=== PATIENT | male | born 1960 | race Caucasian/White ===

== ENCOUNTER 2021-09-03 11:56 | Emergency (ER) | payer OTHER, SELFPAY ==
[2021-09-03 12:03] VITALS: BP 156/108; PULSE 91; RESP 20; TEMP 36.7; O2SAT 99
--- NOTE | 2021-09-03 12:15 | RT.EKG_ITS ---
APPROVED REPORT Exam: Resting ECG Reason for Exam: chest pain Patient Location: E HR:73 bpm ECG Measurements Heart Rate 73 AXIS TN 186 P 72 QRSd 88 QRS -1 QT 410 T 63 QTc 451 Conclusion Sinus rhythm...normal P axis, V-rate 60- 99 no STEMI, non-diagnostic EKG
--- NOTE | 2021-09-03 12:15 | DI.CT_ITS ---
Exam(s) CT CHEST PE CTA EXAM: CT CHEST PE CTA CLINICAL HISTORY: hx of hemoptysis. TECHNIQUE: Imaging Protocol: CT angiography of the chest was performed using pulmonary embolus claudia col. Multi planar reconstructions were performed. CONTRAST MATERIAL: Intravenous: Omnipaque 350 Contrast volume: 100 cc COMPARISON: No exams were available for comparison FINDINGS: CHEST: PULMONARY ARTERIES: There are no intraluminal filling defects to suggest acute pulmonary emboli. LUNGS: There is cavitated infiltrate in the right upper lobe, this measuring approximately 4.5 x 4.2 by 4.5 cm. Some volume loss in the right upper lobe is also noted.. There is also a somewhat concer dru infiltrate in the right lower lobe measuring 2 x 2 cm. This is non cavitated. Another area of infiltrate is noted in superior segment the right lower lobe measuring approximately 3 x 1.5 cm. The re are no pleural effusions. In the opposite-left lung there is some mild infiltrate in the upper lobe close to the heart border, non cavitated. Also within inferior lingular segment. There are no pleural effusions MEDIASTINUM: There is no hilar nor mediastinal adenopathy. Visualized thyroid unremarkable. CARDIAC: Heart size is upper normal. There is no pericardial effusion.Caliber of the thoracic aorta is upper normal. There is no significant shift of the interventricular septum. PARTIALLY VISUALIZED UPPERMOST ABDOMEN: No adrenal masses. Nonobstructive calculi are noted in the l eft kidney, partially included in the field of view. Hepatic steatosis noted. No splenomegaly. OSSEOUS: No significant osseous lesions.. IMPRESSION: 1. No evidence of acute pulmonary emboli. No evidence of pulmonary infarction.No pleural effusions. 2. However, there is significant right para-suprahilar infiltrate in the right upper lobe which is ca vitated. Requires close follow-up to rule out neoplasm. Also other areas of infiltrate in the lower lobe noted, these being non cavitated. No prominent lymphadenopathy. No pleural effusions. 3. Mild areas of infiltrate in the opposite-left lung. Also without pleural effusion Other findings as above. RADIATION DOSE DELIVERED: 353.83mGy.cm Total DLP DATA REPOSITORY: All CT scans at this facility are submitted to the National Radiology Data Registry (NRDR) Dose Index Registry (DIR) with the [employer] (A[employer]). RADIATION OPTIMIZATION: All CT scans at this facility use at least one of these dose optimization te chniques: automated exposure control; mA and/or kV adjustment per patient size (includes targeted exa ms where dose is matched to clinical indication); or iterative reconstruction.
[2021-09-03 13:30] VITALS: RESP 18
[2021-09-03 13:35] LABS: Abs Immature Grans 0.03 10^3/uL (0.0-0.06); Absolute Basophil Count 0.05 10^3/uL (0.0-0.2); Absolute Eosinophil Count 0.09 10^3/uL (0.0-0.7); Absolute Monocyte Count 0.76 10^3/uL (0.1-0.8); Absolute Neutrophil Count 3.98 10^3/uL (1.2-6.7); Basophils % 0.8; Eosinophils % 1.4; HCT 47.1 % (40.0-50.0); HGB 15.9 g/dL (13.5-17.5); Immature Grans % 0.5; Lymphocytes % 22.2; MCH 32.9 pg (27.0-33.0); MCHC 33.8 % (32.0-36.0); MCV 97.3 fL (80-95); MPV 9.4 fL (8.0-11.0); Neutrophils % 63.1; Nucleated RBC 0 %; Platelet Count 267 10^3/uL (130-400); RBC 4.84 10^6/uL (4.36-5.78); RDW 13.1 % (11.8-14.1); RDW-SD 47.2 fL; WBC 6.31 10^3/uL (4.4-10.8)
[2021-09-03 13:59] LABS: Calcium 8.6 mg/dL (8.5-10.1)
[2021-09-03 14:00] LABS: Albumin 3.9 g/dL (3.4-5.0); Alkaline Phosphatase 142 U/L (46-116); BUN 10 mg/dL (7-18); Bilirubin, Total 0.5 mg/dL (0.2-1.0); CREATININE 0.8 mg/dL (0.70-1.30); Glucose 113 mg/dL (74-106); Sodium 139 mmol/L (136-145)
[2021-09-03 14:01] LABS: ALT 49 U/L (16-63); AST 36 U/L (15-37); Anion Gap 6.6 mmol/L (3-11); CO2 31.4 mmol/L (21.0-32.0); Chloride 101 mmol/L (98-107); Potassium 4.3 mmol/L (3.5-5.1); Troponin I < 0.05 ng/mL (<0.06)
[2021-09-03 14:03] LABS: NT-proBNP 92 pg/mL (<300)
--- NOTE | 2021-09-03 14:27 | NUR.NOTE ---
1400 Denies any pain or discomforts at [facility] [id number] comfortably.Nursing Note:
--- NOTE | 2021-09-03 15:13 | W.ED.GENAD ---
Discharge Plan Disposition Patient Disposition: HOME Condition: Stable Discharge Details Clinical Impression: Pneumonia, Cavitary lesion of lung Primary Care Provider: [place] Provider: Juan Lee Home Meds and New Rx's Prescriptions: New amoxicillin-pot clavulanate [Augmentin] 875-125 mg tablet 1 tab PO BID Qty: 20 RF: 0 Discharge Instructions Instructions: Pneumonia (ED) Additional Instructions: I strongly recommended to quit smoking. Augmentin as directed. Your CT finding is extremely concerning for a irregular lung infection and/or mass. I consulted with our telemarketing fundraiser and we will initiate antibiotic therapy here we will need to follow her as an outpatient for further evaluation and work-up. Please watch for new or worsening symptoms and return to the ER for any concerns. I have placed you on the care management team to help expedite both outpatient primary care and pulmonary follow-up. Referrals: Char Escobar MD [ [facility] STAFF PHYSICIAN] - Discharge Data Discharge Date/Time-TO BE ENTERED AT DEPARTURE: 09/03/21 18:24 Medical Decision Making <EMILY Malik - Last Filed: 09/04/21 12:09> CT pending given hemoptysis and presenting symptoms Diagnostic labs do not show acute abnormality Patient resting comfortably in room, no withdrawal signs or symptoms, alert, oriented, of decisional capacity Pending CT interpretation at this time Symptoms have not changed for patient reportedly Patient smokes tobacco, uses inhalers on a daily basis, sounds like he has a history of COPD Is not Covid vaccinated, denies any new symptoms in the past 2 years Medical Records Medical records reviewed: Yes I reviewed the patient's medical records. Lab Data Lab results reviewed: Yes I reviewed the patient's lab results. <EMILY Eastman - Last Filed: 09/03/21 18:15> I assumed care of this 61-year-old male from my colleague EMILY Tamez with CTA of the chest pending. Please see her initial HPI and examination. Patient is a smoker, reports lung pain and hemoptysis in the past although no hemoptysis now. Has not seen a primary care provider in at least 7 or 8 years. Patient is speaking in full sentences, O2 sats in the mid to high 90s on room air he is afebrile CTA reveals 1. No evidence of acute pulmonary emboli. No evidence of pulmonary infarction.No pleural effusions. 2. However, there is significant right para-suprahilar infiltrate in the right upper lobe which is cavitated. Requires close follow-up to rule out neoplasm. Also other areas of infiltrate in the lower lobe noted, these being non cavitated. No prominent lymphadenopathy. No pleural effusions. 3. Mild areas of infiltrate in the opposite-left lung. Also without pleural effusion Given the cavitated infiltrate, concern for neoplasm, I have placed a call to our telemarketing fundraiser for consultation. Unfortunately I was told that she was not personal lines insurance advisor this evening so I have pushed the images to [facility] and requested a consult from them. Fortunately, Dr. Escobar, our telemarketing fundraiser was in-house and able to come to the ER to discuss the case. She reviewed the CT imaging, recommend initiating Augmentin therapy and she will be happy to follow the patient as an outpatient as he will require further evaluation for his abnormal CT findings. Patient appears stable, does not require admission at this time. This plan was discussed with patient. I placed him on the care management list to help expedite both primary care follow-up and pulmonology follow-up. Patient has no additional questions or concerns. Standard discharge and return precautions provided. Imaging Data Radiologic Study: Attestation: I personally reviewed and interpreted this imaging study as follows: Imaging: CT Scan Radiologist's impression: Exam(s) CT CHEST PE CTA EXAM: CT CHEST PE CTA CLINICAL HISTORY: hx of hemoptysis. TECHNIQUE: Imaging Protocol: CT angiography of the chest was performed using pulmonary embolus protocol. Multi planar reconstructions were performed. CONTRAST MATERIAL: Intravenous: Omnipaque 350 Contrast volume: 100 cc COMPARISON: No exams were available for comparison FINDINGS: CHEST: PULMONARY ARTERIES: There are no intraluminal filling defects to suggest acute pulmonary emboli. LUNGS: There is cavitated infiltrate in the right upper lobe, this measuring approximately 4.5 x 4.2 by 4.5 cm. Some volume loss in the right upper lobe is also noted.. There is also a somewhat concerning infiltrate in the right lower lobe measuring 2 x 2 cm. This is non cavitated. Another area of infiltrate is noted in superior segment the right lower lobe measuring approximately 3 x 1.5 cm. There are no pleural effusions. In the opposite-left lung there is some mild infiltrate in the upper lobe close to the heart border, non cavitated. Also within inferior lingular segment. There are no pleural effusions MEDIASTINUM: There is no hilar nor mediastinal adenopathy. Visualized thyroid unremarkable. CARDIAC: Heart size is upper normal. There is no pericardial effusion.Caliber of the thoracic aorta is upper normal. There is no significant shift of the interventricular septum. PARTIALLY VISUALIZED UPPERMOST ABDOMEN: No adrenal masses. Nonobstructive calculi are noted in the left kidney, partially included in the field of view. Hepatic steatosis noted. No splenomegaly. OSSEOUS: No significant osseous lesions.. IMPRESSION: 1. No evidence of acute pulmonary emboli. No evidence of pulmonary infarction.No pleural effusions. 2. However, there is significant right para-suprahilar infiltrate in the right upper lobe which is cavitated. Requires close follow-up to rule out neoplasm. Also other areas of infiltrate in the lower lobe noted, these being non cavitated. No prominent lymphadenopathy. No pleural effusions. 3. Mild areas of infiltrate in the opposite-left lung. Also without pleural effusion HPI <EMILY Malik - Last Filed: 09/04/21 12:09> General Mode of arrival: ambulatory. Date/Time Provider Initiated Documentation: 09/03/21 12:20. Limitations to Documentation: no limitations. Information obtained by: patient. HPI Narrative: 61-year-old gentleman with history of COPD and hole in lung , presents for worsening lung pain over the course of the past 2 years. Presents today to check out a CT scan. He [facility] . He has not been evaluated for the past 7 years.. He denies history of withdrawal symptoms. He denies any current symptoms. He has had intermittent hemoptysis per patient. He is not had an episode for the past year. He denies any fever or chills. He denies any calf pain or swelling. He denies history of coagulopathy. He is not anticoagulated. He does drink approximately 4 beers a day, no history of withdrawal symptoms. Related Data Home Medications Medication Instructions Recorded Confirmed amoxicillin-pot clavulanate 1 tab PO BID #20 tab 09/03/21 [Augmentin] Previous Rx's Medication Instructions Recorded amoxicillin-pot clavulanate 1 tab PO BID #20 tab 09/03/21 [Augmentin] Allergies Allergy/AdvReac Type Severity Reaction Status Date / Time No Known Allergies Allergy Unverified 09/03/21 13:37 General Stated Complaint: [employer] ANGELA: 2 Review of Systems <EMILY Malik - Last Filed: 09/04/21 12:09> All systems reviewed & are unremarkable except as noted in HPI and below PFSH <EMILY Malik - Last Filed: 09/04/21 12:09> Social History Smoking/Tobacco Use Status: Current, status unknown Tobacco Type: cigarettes Smoking risk assessment performed?: Yes Alcohol Intake: current Alcohol Intake frequency: 3 or more drinks per day Alcohol type: beer Substance use type: does not use Do you feel safe at home: Yes Exam <EMILY Malik Last Filed: 09/04/21 12:09> Const General: cooperative, comfortable and no acute distress Eyes Pupils: PERRL Resp Effort & Inspection: normal respiratory effort Auscultation: wheezes Other: No respiratory distress Cardio Rate: regular rate Rhythm: regular rhythm GI Inspection: normal to inspection Auscultation: normal bowel sounds Skin General skin exam: no rashes or lesions noted Neuro General: patient alert and patient oriented x3 Extrem Other: No calf swelling or tenderness Course <EMILY Malik - Last Filed: 09/04/21 12:09> Vital Signs Vital signs: Vital Signs Temperature 36.7 C 09/03/21 12:03 Pulse 91 H 09/03/21 12:03 Respiratory Rate 20 09/03/21 12:03 Blood Pressure 156/108 H 09/03/21 12:03 Pulse Oximetry 99 09/03/21 12:03 Temperature 36.7 C 09/03/21 12:03 Temperature Source Tympanic 09/03/21 14:13 Pulse 91 H 09/03/21 12:03 Respiratory Rate 18 09/03/21 13:30 Respiratory Effort Non-Labored 09/03/21 14:04 Respiratory Depth Normal 09/03/21 13:30 Respiratory Pattern Normal 09/03/21 13:30 Blood Pressure 156/108 H 09/03/21 12:03 Blood Pressure Position Sitting 09/03/21 12:03 Pulse Oximetry 99 09/03/21 12:03 Oxygen Delivery Method Room Air 09/03/21 14:13 Oxygen Flow Rate 0 09/03/21 14:13 Comment 09/03/21 12:03 Lab/Test Results Lab/Test Results: Laboratory Tests Range/Units 09/03/21 09/03/21 09/03/21 13:25 13:25 13:25 WBC (4.4-10.8) 10^3/uL 6.31 RBC (4.36-5.78) 10^6/uL 4.84 Hgb (13.5-17.5) g/dL 15.9 Hct (40.0-50.0) % 47.1 MCV (80-95) fL 97.3 H MCH (27.0-33.0) pg 32.9 MCHC (32.0-36.0) % 33.8 RDW (11.8-14.1) % 13.1 Plt Count (130-400) 10^3/uL 267 MPV (8.0-11.0) fL 9.4 Immature Gran % 0.5 Neutrophils % 63.1 Lymphocytes % 22.2 Monocytes % 12.0 Eosinophils % 1.4 Basophils % 0.8 Nucleated RBC % % 0 Absolute Neutrophils (1.2-6.7) 10^3/uL 3.98 Absolute Lymphocytes (1.2-3.4) 10^3/uL 1.40 Absolute Monocytes (0.1-0.8) 10^3/uL 0.76 Absolute Eosinophils (0.0-0.7) 10^3/uL 0.09 Absolute Basophils (0.0-0.2) 10^3/uL 0.05 Sodium (136-145) mmol/L 139 Potassium (3.5-5.1) mmol/L 4.3 Chloride (98-107) mmol/L 101 Carbon Dioxide (21.0-32.0) mmol/L 31.4 Anion Gap (3-11) mmol/L 6.6 BUN (7-18) mg/dL 10 Creatinine (0.70-1.30) mg/dL 0.8 Estimated GFR/1.73 m2 (mL/min/1.73m2) >= 60.00 Glucose (74-106) mg/dL 113 H Calcium (8.5-10.1) mg/dL 8.6 Total Bilirubin (0.2-1.0) mg/dL 0.5 AST (15-37) U/L 36 ALT (16-63) U/L 49 Alkaline Phosphatase (46-116) U/L 142 H Troponin I (<0.06) ng/mL < 0.05 NT-Pro-B Natriuret Pep (<300) pg/mL 92 Total Protein (6.4-8.2) g/dL 8.0 Albumin (3.4-5.0) g/dL 3.9 Patient ABO/Rh Cancelled Antibody Screen Range/Units 09/03/21 13:50 WBC (4.4-10.8) 10^3/uL RBC (4.36-5.78) 10^6/uL Hgb (13.5-17.5) g/dL Hct (40.0-50.0) % MCV (80-95) fL MCH (27.0-33.0) pg MCHC (32.0-36.0) % RDW (11.8-14.1) % Plt Count (130-400) 10^3/uL MPV (8.0-11.0) fL Immature Gran % Neutrophils % Lymphocytes % Monocytes % Eosinophils % Basophils % Nucleated RBC % % Absolute Neutrophils (1.2-6.7) 10^3/uL Absolute Lymphocytes (1.2-3.4) 10^3/uL Absolute Monocytes (0.1-0.8) 10^3/uL Absolute Eosinophils (0.0-0.7) 10^3/uL Absolute Basophils (0.0-0.2) 10^3/uL Sodium (136-145) mmol/L Potassium (3.5-5.1) mmol/L Chloride (98-107) mmol/L Carbon Dioxide (21.0-32.0) mmol/L Anion Gap (3-11) mmol/L BUN (7-18) mg/dL Creatinine (0.70-1.30) mg/dL Estimated GFR/1.73 m2 (mL/min/1.73m2) Glucose (74-106) mg/dL Calcium (8.5-10.1) mg/dL Total Bilirubin (0.2-1.0) mg/dL AST (15-37) U/L ALT (16-63) U/L Alkaline Phosphatase (46-116) U/L Troponin I (<0.06) ng/mL NT-Pro-B Natriuret Pep (<300) pg/mL Total Protein (6.4-8.2) g/dL Albumin (3.4-5.0) g/dL Patient ABO/Rh O Positive Antibody Screen NEGATIVE Sign Out <EMILY Malik - Last Filed: 09/04/21 12:09> Sign Out Data: Sign Out Comment: pending ct interpretation Last updated by Marisela Tamez PA at 09/03/21 16:06 PAWSS <EMILY Malik - Last Filed: 09/04/21 12:09> Have you Been Recently Intoxicated or Drunk Within the Last 30 days?: Yes Have you Ever Experienced Previous Episodes of Alcohol Withdrawal?: No Have you ever Experienced Withdrawal Seizures?: No Have you ever Experienced Delirium Tremens(DT)s?: No Have you ever undergone Alcohol Rehabilitation Treatment (i.e, inpt ot outpatient treatment programs)?: Yes Have you ever Experienced Blackouts?: No Have you ever Combined Alcohol with other Downers within the last 90 days?: No Have you ever Combined Alcohol with any other Substance of Abuse during the last 90 days?: No Positive Blood Alcohol level on Presentation? [PCS.BAL]: No Evidence of Increased Autonomic Activity (i.e. HR>120, tremor, sweating, agitation, nausea)?: No Result: 2
[2021-09-03] MEDS: Normal Saline - Diluent 50 ML VIAL IV (15:30)
[2021-09-03] MEDS: Omnipaque 350 MG/ML 100 ML BTL IJ (15:31)
[2021-09-03 16:16] LABS: Troponin I < 0.05 ng/mL (<0.06)
[2021-09-03] MEDS: Amoxicillin 875/Clav. 125 TAB PO (18:10)
[2021-09-03 18:39] VITALS: BP 164/98; PULSE 95; RESP 18; TEMP 36.6; O2SAT 96
--- NOTE | 2021-09-04 01:22 | NUR.NOTE ---
Referral to Care Management to get patient set up with pcp and Pulmonary Rehab. Dr. Escobar aware Care Management will be making referral.Nursing Note:
[2021-09-04 16:14] LABS: COVID-19 RT-PCR UVMMC Result Negative (Negative)
== END 2021-09-03 18:24 | disposition home or self-care (01) ==
PROVIDERS: Physician Assistant; Emergency Provider Physician Assistant
DX: J18.9 Pneumonia, unspecified organism (principal); R91.8 Other nonspecific abnormal finding of lung field; J44.9 Chronic obstructive pulmonary disease, unspecified; F17.210 Nicotine dependence, cigarettes, uncomplicated; R07.9 Chest pain, unspecified; R06.02 Shortness of breath
CPT/HCPCS: 36415; 71275; 80053; 86850; 86900; 86901; 93005; 99285; U0003; 83880; 84484; 85025; 93010; 99284; J3490

== ENCOUNTER 2021-09-24 15:32 | Outpatient (REF) | payer MEDICARE, SELFPAY ==
[2021-09-24 22:35] LABS: Rheumatoid Factor <8.6 IU/mL (<12.0)
[2021-09-25 09:54] LABS: Cyclic Citrullinated Peptide <2.5 U/mL (<5.0)
[2021-09-25 12:56] LABS: dsDNA Ab, IgG <12.3 IU/mL (<30.0)
[2021-09-25 13:55] LABS: ANA Interpretation Positive (Negative); ANA Titer Pattern 1:320 Speckled
[2021-09-25 14:27] LABS: Myeloperoxidase Ab IgG <0.2 U; Proteinase 3 Ab (PR3) <0.2 U
[2021-09-25 17:06] LABS: Fungitell Qualitative Negative (Negative); Fungitell Quantitative Value <31 pg/mL (<60 pg/mL)
[2021-09-29 20:55] LABS: Blastomyces Ag Result Not Detected; Blastomyces Ag Value Not Detected
== END 2021-09-24 15:33 | disposition home or self-care (01) ==
LOC: LBN 15:32
PROVIDERS: Visit Provider Student in an Organized Health Care Education/Training Program
DX: J98.4 Other disorders of lung (principal)
CPT/HCPCS: 86200; 87449; 83516; 86038; 86225; 86431; 87385

== ENCOUNTER 2021-10-02 02:48 | Outpatient (CLI) | payer MEDICARE, MEDICAID, SELFPAY ==
[2021-10-02] MEDS: Inhaler, Assist Device 1 EACH MC (16:22)
[2021-10-02] MEDS: Albuterol HFA 18 GM 200 PUFF INH IH (16:22)
--- NOTE | 2021-10-03 09:33 | W.PFT ---
Date of service: 10/02/21 Time of Service: 15:05 Pulmonary Function Test Result Requesting Provider Shawn Indications: Shortness of breath Interpretation Spirometry: There is severe airflow limitation. There is a significant bronchidilator response. Lung Volumes: There is hyperinflation and air trapping Diffusion Capacity: The diffusion is reduced. Airway Pressure: The airways resistance is elevated Impression Severe airflow limitation with air trapping and a reduced diffusion. In the correct clinical context this could represent COPD with emphysema. Clinical Correlation therefore is recommended.
== END 2021-10-02 02:49 | disposition home or self-care (01) ==
LOC: RT 02:48
PROVIDERS: Visit Provider Student in an Organized Health Care Education/Training Program
DX: J98.8 Other specified respiratory disorders (principal); R06.02 Shortness of breath; R94.2 Abnormal results of pulmonary function studies; F17.210 Nicotine dependence, cigarettes, uncomplicated; Z77.090 Contact with and (suspected) exposure to asbestos
CPT/HCPCS: 94060; 94726; 94729

== ENCOUNTER 2021-11-10 01:12 | Outpatient (CLI) | payer MEDICARE, MEDICAID, SELFPAY | END 2021-11-10 01:13 | disposition home or self-care (01) | LOC: LBO 01:12 | PROVIDERS: PCP Physician Assistant Medical; Visit Provider Student in an Organized Health Care Education/Training Program ==

== ENCOUNTER 2022-01-18 16:02 | Emergency (ER) | payer MEDICARE, MEDICAID, SELFPAY ==
[2022-01-18 16:08] VITALS: BP 191/108; PULSE 80; RESP 20; TEMP 36.1; O2SAT 96
--- NOTE | 2022-01-18 16:15 | RT.EKG_ITS ---
APPROVED REPORT Exam: Resting ECG Reason for Exam: SOB Patient Location: E HR:79 bpm ECG Measurements Heart Rate 79 AXIS IA 188 P 71 QRSd 93 QRS 0 QT 401 T 73 QTc 459 Conclusion Sinus rhythm...normal P axis, V-rate 60- 99. Sinus. Normal axis. No STEMI. I have reviewed and interpreted ECG and agree with software generated interpretation.
--- NOTE | 2022-01-18 16:15 | DI.RAD_ITS ---
Exam(s) XR CHEST 2V PA LATERAL EXAM: XR CHEST 2V PA LATERAL CLINICAL HISTORY: shortness, worse when supine, r/o acute disease TECHNIQUE: 2D digital imaging was performed. COMPARISON: CT CT CHEST PE CTA from 09/03/2021 FINDINGS: MEDIASTINUM: Normal. HEART: Normal. PULMONARY VASCULATURE: Normal. LUNGS: Right upper lobe scarring, similar to previous CT. Right mid lung field densities appear stab le from previous exam and likely represents scarring. Mild left-sided scarring is seen. No superimp osed infiltrate, effusion or pulmonary edema.. PLEURAL SPACE: No pleural effusion or pneumothorax. BONE:Unremarkable for age. IMPRESSION: No acute abnormality. Areas of scarring greatest in the right upper lobe, pre similar to previous CT . There is further clinical question, a chest CT could be performed for further evaluation. DATA REPOSITORY: RADIATION DOSE DELIVERED:
[2022-01-18 16:55] LABS: Source Nasopharynx
[2022-01-18 17:09] LABS: Abs Immature Grans 0.02 10^3/uL (0.0-0.06); Absolute Basophil Count 0.07 10^3/uL (0.0-0.2); Absolute Eosinophil Count 0.05 10^3/uL (0.0-0.7); Absolute Lymphocyte Count 1.67 10^3/uL (1.2-3.4); Absolute Monocyte Count 0.91 10^3/uL (0.1-0.8); Absolute Neutrophil Count 4.65 10^3/uL (1.2-6.7); Basophils % 0.9; Eosinophils % 0.7; HCT 48.2 % (40.0-50.0); HGB 15.8 g/dL (13.5-17.5); Immature Grans % 0.3; Lymphocytes % 22.7; MCH 32.5 pg (27.0-33.0); MCHC 32.8 % (32.0-36.0); MCV 99.2 fL (80-95); Monocytes % 12.3; Neutrophils % 63.1; Nucleated RBC 0 %; Platelet Count 309 10^3/uL (130-400); RBC 4.86 10^6/uL (4.36-5.78); RDW 12.9 % (11.8-14.1); RDW-SD 47.9 fL; WBC 7.37 10^3/uL (4.4-10.8)
[2022-01-18 17:17] LABS: ALT 34 U/L (16-63); AST 28 U/L (15-37); Albumin 3.9 g/dL (3.4-5.0); Alkaline Phosphatase 164 U/L (46-116); Anion Gap 9.9 mmol/L (3-11); BUN 8 mg/dL (7-18); Bilirubin, Total 0.5 mg/dL (0.2-1.0); CO2 27.1 mmol/L (21.0-32.0); CREATININE 0.7 mg/dL (0.70-1.30); Chloride 100 mmol/L (98-107); Glucose 83 mg/dL (74-106); Magnesium 2.2 mg/dL (1.8-2.4); Potassium 3.9 mmol/L (3.5-5.1); Sodium 137 mmol/L (136-145); Total Protein 8.5 g/dL (6.4-8.2); Troponin I < 50 ng/L (<or=60)
[2022-01-18 17:25] LABS: NT-proBNP 95 pg/mL (<300)
[2022-01-18 17:31] LABS: COVID-19 PCR Negative (Negative); Influenza A PCR Negative (Negative); Influenza B PCR Negative (Negative); RSV PCR Negative (Negative)
--- NOTE | 2022-01-18 17:45 | DI.VRAD_ITS ---
PROCEDURE INFORMATION: Exam: XR Chest Exam date and time: 01/18/2022 5:07 PM Age: 61 years old Clinical indication: Other: Shortness of breath, worse when supine, R/O acute disease TECHNIQUE: Imaging protocol: XR of the chest. Views: 2 views. COMPARISON: CT CHEST PE CTA 09/03/2021 3:23 PM FINDINGS: Lungs: Hyperinflation consistent with emphysema. Right mid lung field ill-defined opacification measuring 25 x 22 mm. Cannot exclude a central right lung mass. There is an area of abnormality on a CT 09/03/2021 showing an area of ground-glass type partially solid opacification in this region. This appears to correlate with the same area. Right lung apex with consolidative areas which appear to represent scarring and bullous type features based on prior CT. No acute infiltrative disease. No acute edema. Pleural spaces: No pleural effusion. Heart/Mediastinum: Normal heart size. Bones/joints: Degenerative thoracic spine disease. IMPRESSION: 1. No acute infiltrative features or edema. 2. No pleural effusion. 3. Right mid lung field opacification consistent with an area of sub solid nodularity identified on CT 09/03/2021. Right upper lobe chronic opacification consistent with areas of scarring and bullous disease. Also evident by previous CT. Dictated and Authenticated by: Donato Torres MD. Ordering:SAMEER Powell MD
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
[2022-01-18] MEDS: predniSONE 20 MG TAB 60 MG PO (18:16)
[2022-01-18] MEDS: Albuterol/Ipratropium 3 ML UPD VIAL UPD (18:17)
[2022-01-18] MEDS: Inhaler, Assist Device 1 EACH MC (18:50)
[2022-01-18] MEDS: Albuterol HFA 8 GM 60 PUFF INH IH (18:50)
[2022-01-18] MEDS: Benzonatate 100 MG CAP 200 MG PO (18:51)
[2022-01-18 18:58] VITALS: BP 160/108; PULSE 75; TEMP 36.2; O2SAT 94
--- NOTE | 2022-01-18 20:05 | NUR.NOTE ---
Referral to Pulmonology Dr Escobar and to Care Management. pt has chronic lung disease and wants to establish care closer to home as he doesn't want to travell all the way to [facility].Nursing Note:
== END 2022-01-18 19:05 | disposition home or self-care (01) ==
PROVIDERS: Emergency Provider Physician Assistant; PCP Physician Assistant Medical
DX: R05.3 Chronic cough (principal); R06.02 Shortness of breath; I10 Essential (primary) hypertension
CPT/HCPCS: 36415; 80053; 87637; 93005; 94640; 99284; 71046; 83735; 83880; 84484; 85025; 93010; J7512; J7620

== ENCOUNTER 2022-04-03 14:08 | Emergency (ER) | payer MEDICARE, MEDICAID, SELFPAY ==
[2022-04-03 14:40] VITALS: BP 154/94; PULSE 101; RESP 20; TEMP 36.7; O2SAT 91
--- NOTE | 2022-04-03 14:51 | ED.GENADUL_ITS ---
Discharge Plan Disposition Patient Disposition: HOME Condition: Stable Discharge Details Clinical Impression: Chronic cough, Chronic shortness of breath Primary Care Provider: Darek Dai ED Provider: Sherry Macedo Home Meds and New Rx's Prescriptions: New doxycycline hyclate 100 mg tablet 100 mg PO BID 7 Days Qty: 14 0RF prednisone 20 mg tablet See Rx Instructions .ROUTE .COMPLEX Qty: 18 0RF Rx Instructions: Take 3 tabs daily for 3 days, then 2 tabs daily for 3 days, then 1 tab daily for 3 days. benzonatate 100 mg capsule 100 mg PO TID PRN (Reason: cough) Qty: 14 0RF Continued Bevespi Aerosphere 9-4.8 mcg HFA aerosol inhaler 2 puff inhalation BID Qty: 10.7 8RF Rx Instructions: needs refill Discharge Instructions Instructions: Chronic Cough (ED), Shortness of Breath (ED) Additional Instructions: Prescriptions for steroids, cough medication and antibiotics have been sent electronically to your pharmacy. You can take the steroids as directed until finished. Take the cough medication as needed and directed for coughing. You may not need the antibiotics as you have a chronic cough. You have been placed on the microelectronics engineer Dr. Mendoza's list for follow-up and for further discussion regarding scheduling a possible bronchoscopy for lung biopsy as previously discussed with Dr. Mendoza for further evaluation of your chronic cough and shortness of breath. Return immediately to the emergency department if you develop any worsening or new concerning symptoms such as fever, worsening shortness of breath or any other concerns. Referrals: Char Escobar MD [ [facility] STAFF PHYSICIAN] - Discharge Data Discharge Date/Time-TO BE ENTERED AT DEPARTURE: 04/03/22 15:25 Discharge Physician: Sherry Macedo Medical Decision Making 62-year-old male with a history of cavitary lung lesion and tobacco dependence presents for request for medication refill for his chronic cough and shortness of breath. Patient was last seen in the ED in December 2021 for similar symptoms and treated with steroids, antibiotics and cough medication. He states his symptoms improved after this. He followed up with Dr. Mendoza in January 2022 and was referred for outpatient bronchoscopy for biopsy of his cavitary lung lesions as it was thought his symptoms are not due to acute infection but rather a chronic condition. Patient states he missed this appointment and would like it rescheduled. Patient is declining any work-up today. His oxygen saturation is 95% on room air on my evaluation. He currently denies any shortness of breath. Discussed that missed or incomplete diagnoses can lead to risk of disability or . Pt demonstrates capacity to make decisions. He states he would only like refills of his prednisone, Tessalon Perles and doxycycline. Discussed with patient that his chronic symptoms may not need treatment with antibiotics. Refills for prednisone, Tessalon Perles and doxycycline sent electronically to his pharmacy. He was placed on Dr. Mendoza's list for follow-up in the next 1 to 2 weeks for rescheduling of his bronchoscopy, whether that be here or at [facility] if recommended by Dr. Mendoza. Medical Records Medical records reviewed: Yes I reviewed the patient's medical records. HPI General Mode of arrival: ambulatory . Date/Time Provider Initiated Documentation: 04/03/22 14:49 . Limitations to Documentation: no limitations . Information obtained by: patient . HPI Narrative: Patient is a 62-year-old male with a history of cavitary lung lesion and chronic smoker who presents for for request for medication refill for his chronic cough and shortness of breath. Patient states he has had a cough and shortness of breath for the past 2 years. He states his cough and shortness of breath is worse when he lays flat. He states he feels fine at this time but when he awakes in the morning, he coughs up yellow sputum and then improves throughout the day. He denies any significant shortness of breath at present. He states he has seen the microelectronics engineer Dr. Mendoza for his symptoms and was referred for outpatient bronchoscopy but states he missed the appointment and would like it rescheduled. He denies any new fever or chest pain. Related Data Home Medications Medication Instructions Recorded Confirmed glycopyrrolate 9 mcg-formoterol 2 puff inhalation BID #10.7 grams 09/29/21 10/15/21 4.8 mcg HFA aerosol inhaler (Bevespi Aerosphere) benzonatate 100 mg capsule 100 mg PO TID PRN cough #14 caps 04/03/22 doxycycline hyclate 100 mg tablet 100 mg PO BID 7 days #14 tabs 04/03/22 prednisone 20 mg tablet See Rx Instructions .Route 04/03/22 .COMPLEX #18 tabs Previous Rx's Medication Instructions Recorded glycopyrrolate 9 mcg-formoterol 2 puff inhalation BID #10.7 grams 09/29/21 4.8 mcg HFA aerosol inhaler (Bevespi Aerosphere) benzonatate 100 mg capsule 100 mg PO TID PRN cough #14 caps 04/03/22 doxycycline hyclate 100 mg tablet 100 mg PO BID 7 days #14 tabs 04/03/22 prednisone 20 mg tablet See Rx Instructions .Route 04/03/22 .COMPLEX #18 tabs Allergies Allergy/AdvReac Type Severity Reaction Status Date / Time No Known Allergies Allergy Unverified 01/18/22 16:15 General Stated Complaint: RespSymp ANGELA: 3 Review of Systems All systems reviewed & are unremarkable except as noted in HPI and below Constitutional Constitutional: Denies chills, Denies excessive sweating, Denies fatigue, Denies fever(s), Denies weakness and Denies weight loss Eyes Eyes: Reports system reviewed and no additional complaints, except as documented and Denies blurry vision ENT Ears, Nose, Mouth, and Throat: Denies vertigo, Denies dizziness, Denies otalgia, Denies nasal congestion, Denies sore throat and Denies throat swelling Cardiovascular Cardiovascular: Denies chest pain, Denies syncope, Denies rapid heart rate and Reports dyspnea Respiratory Respiratory: Denies chest congestion, Reports cough, Denies pain on inspiration and Reports dyspnea Gastrointestinal Gastrointestinal: Denies abdominal pain, Denies diarrhea and Denies vomiting Genitourinary Genitourinary: Denies hematuria, Denies dysuria and Denies flank pain Musculoskeletal Musculoskeletal: Denies back pain and Denies joint swelling Integumentary/Breasts Skin/Breast: Denies lesions and Denies rash Neurologic Neurologic: Denies behavioral changes, Denies confusion, Denies vertigo, Denies dizziness, Denies syncope, Denies localized weakness and Denies weakness Psychiatric Psychiatric: Denies behavioral changes, Denies confusion and Denies depression Endocrine Endocrine: Denies excessive sweating and Denies fatigue Hematologic/Lymphatic Hematologic/Lymphatic: Denies easy bruising and Denies lymphadenopathy Allergic/Immunologic Allergic/Immunologic: Denies throat swelling PFSH All Active Problems (Updated 04/03/22 @ 15:09 by Sherry Macedo DO) Chronic cough (Acute) Chronic shortness of breath (Acute) Abuse (Acute) Pneumonia (Acute) Medical History Cavitary lesion of lung Smoker Surgical History (Updated 01/18/22 @ 18:25 by Sherry Macedo DO) No significant past surgical history Social History Smoking/Tobacco Use Status: Current every day Tobacco Type: cigarettes Smoking risk assessment performed?: Yes Alcohol Intake: current Alcohol Intake frequency: 3 or more drinks per day Alcohol type: beer Drug use: Never Substance use type: does not use Do you feel safe at home: Yes Do you feel safe in your relationship?: Yes Exam Const General: cooperative Orientation: alert, awake and oriented x3 HENMT Head: normal to inspection Ears: hearing grossly normal bilaterally and external ears normal General nose exam: external nose normal Face and sinus: normal facial exam Mouth: oral mucosae normal Teeth and gingiva: poor dentition Throat: posterior oropharynx normal Eyes General: appearance normal, both eyes and all related structures Eyelids: eyelids normal Pupils: PERRL EOM: EOM intact bilaterally Neck Neck: normal visual inspection Lymphatic: no lymphadenopathy noted Chest Chest: normal inspection of the chest Resp Effort & Inspection: normal respiratory effort and able to speak in complete sentences Auscultation: clear to auscultation bilaterally Cardio Rate: regular rate Rhythm: regular rhythm GI Inspection: normal to inspection Palpation: soft, not firm, no guarding, no hepatosplenomegaly, no masses and nontender Auscultation: normal bowel sounds Back/Spine/Pelvis Back: no CVA tenderness Skin General skin exam: no rashes or lesions noted Neuro General: patient alert and patient awake Cognition: normal cognition Speech: speech normal Gait: normal gait Motor: muscle tone normal throughout Sensory Exam: no sensory deficits noted Extrem General: normal to inspection, full ROM and capillary refill normal Psych Appearance: grossly normal Mental Status: mental status grossly normal Speech and Movement: speech and movement normal Affect: normal affect Thought Process: normal Course Vital Signs Vital signs: Vital Signs Temperature 98.1 F 04/03/22 14:40 Pulse 101 H 04/03/22 14:40 Respiratory Rate 20 04/03/22 14:40 Blood Pressure 154/94 H 04/03/22 14:40 Pulse Oximetry 91 L 04/03/22 14:40 Temperature 98.1 F 04/03/22 14:40 Temperature Source Temporal Artery Scan 04/03/22 14:40 Pulse 101 H 04/03/22 14:40 Respiratory Rate 20 04/03/22 14:40 Respiratory Effort 04/03/22 14:46 Blood Pressure 154/94 H 04/03/22 14:40 Blood Pressure Position Sitting 04/03/22 14:40 Pulse Oximetry 91 L 04/03/22 14:40 Oxygen Delivery Method Room Air 04/03/22 14:40 Oxygen Flow Rate 0 04/03/22 14:40 Pain Level 0 04/03/22 14:40 PAWSS Have you Been Recently Intoxicated or Drunk Within the Last 30 days?: Unable to Obtain Have you Ever Experienced Previous Episodes of Alcohol Withdrawal?: Unable to Obtain Have you ever Experienced Withdrawal Seizures?: Unable to Obtain Have you ever Experienced Delirium Tremens(DT)s?: Unable to Obtain Have you ever undergone Alcohol Rehabilitation Treatment (i.e, inpt ot outpatient treatment programs)?: Unable to Obtain Have you ever Experienced Blackouts?: Unable to Obtain Have you ever Combined Alcohol with other Downers within the last 90 days?: No Have you ever Combined Alcohol with any other Substance of Abuse during the last 90 days?: No Result: 0
--- NOTE | 2022-04-03 15:08 | NUR.NOTE ---
Nursing Note: PT INFO FAXED TO PULMONOLOGY TO BE SEEN IN TWO WEEKS FOR A BIOPSY & BRONCH. SARMAD, ED
== END 2022-04-03 15:25 | disposition home or self-care (01) ==
PROVIDERS: Emergency Provider Physician Assistant; PCP Physician Assistant Medical
DX: R05.3 Chronic cough (principal); R06.02 Shortness of breath; F17.210 Nicotine dependence, cigarettes, uncomplicated
CPT/HCPCS: 99283

== ENCOUNTER 2022-05-13 16:58 | Outpatient (REF) | payer MEDICARE, MEDICAID, SELFPAY ==
[2022-05-13 13:26] LABS: Source Nasal/Nares
[2022-05-13 16:39] LABS: COVID-19 PCR Negative (Negative)
== END 2022-05-13 16:59 | disposition home or self-care (01) ==
LOC: LBN 16:58
PROVIDERS: PCP Physician Assistant Medical; Visit Provider Student in an Organized Health Care Education/Training Program
DX: Z20.822 Contact with and (suspected) exposure to COVID-19 (principal); J98.4 Other disorders of lung; Z01.818 Encounter for other preprocedural examination
CPT/HCPCS: 87635

== ENCOUNTER 2022-05-15 06:23 | Day surgery (SDC) | payer MEDICARE, MEDICAID, SELFPAY ==
[2022-05-15] VITALS (12 sets, daily range): BP systolic 130–206; BP diastolic 78–117; PULSE 77–98; RESP 16–24; TEMP 36.8–37.3; O2SAT 93–98; BMI 23.6
[2022-05-15] MEDS: Lactated Ringers 1,000 ML 30 ML IV (06:59)
--- NOTE | 2022-05-15 07:09 | W.ANESPRE ---
General Info Date of Service Date Performed: 05/15/22 Height: 5 ft 7 in Weight: 68.6 kg Body Mass Index (BMI): 23.6 Surgical Procedure: Operation Date: 05/15/22 07:40 Proposed Procedure Side Surgeon p Bronchoscopy w/BAL & Endobronchial Brushings Char Escobar MD Meds Allergies and Home Medications Allergies Allergy/AdvReac Type Severity Reaction Status Date / Time No Known Allergies Allergy Verified 05/15/22 06:28 Home Medication Medication Instructions Recorded albuterol sulfate 90 mcg/actuation 2 puff inhalation Q4H PRN 04/30/22 aerosol inhaler shortness of breath or wheezing #8.5 grams glycopyrrolate 9 mcg-formoterol 2 puff inhalation BID #10.7 grams 04/30/22 4.8 mcg HFA aerosol inhaler (Bevespi Aerosphere) benzonatate 100 mg capsule 100 mg PO TID PRN cough #14 caps 05/13/22 Current Visit Medications: Current Medications Generic Name Dose Route Start Last Admin Trade Name Jamesq PRN Reason Stop Dose Admin Ringer's Solution 1,000 mls @ 30 mls/hr 05/15/22 06:00 05/15/22 06:59 IV 06/13/22 23:59 30 mls/hr INFUSION RAFAEL Administration IV Miscellaneous Supplies 1 each 05/15/22 06:00 Iv Access IV 06/13/22 23:59 DIRECTED RAFAEL Sodium Chloride 0 ml 05/15/22 06:00 Normal Saline Flush 10 Ml Syr IV 06/13/22 23:59 PRN PRN Sodium Chloride 0 ml 05/15/22 06:00 Normal Saline 10 Ml Vial IJ 06/13/22 23:59 DIRECTED PRN Sterile Water 0 ml 05/15/22 06:00 Water,Injection,Sterile 10 Ml Vial IJ 06/13/22 23:59 DIRECTED PRN PFSH Active Problems Active Problems: Problem Status Onset Code Pneumonia J18.9 Cavitary lesion of lung J98.4 Abuse Medical History Medical History History of alcohol abuse Smoker Medical History Comments:: S.O. stated patients family all had blood clots after surgery Surgical History Surgical History No significant past surgical history Tobacco Smoking/Tobacco Use Status: Current every day Tobacco Type: cigarettes Alcohol Alcohol Intake: current Alcohol intake frequency: 3 or more drinks per day Alcohol type: beer Substance Use Substance use: Never Substance use type: does not use Vital Signs and Lab Results Vital Signs Most Recent Vital Signs in EMR: Most Recent Vital Signs Temp Pulse Resp BP Pulse Ox 37.0 C 94 H 16 130/97 H 94 05/15/22 06:31 05/15/22 06:31 05/15/22 06:31 05/15/22 06:31 05/15/22 06:31 Lab Results Blood Type / Crossmatch: No Data to Display Complete Blood Count: No Data to Display Complete Metabolic Panel: No Data to Display Liver Function Panel: No Data to Display Coagulation Panel: No Data to Display Cardiac Panel: No Data to Display Arterial Blood Gas: No Data to Display Venous Blood Gas: No Data to Display Pancreas Panel: No Data to Display Thyroid Panel: No Data to Display Infectious Disease: Coronavirus (COVID-19)(PCR) Negative (Negative) 05/13/22 11:35 Coronavirus 2019 Source Nasal/Nares 05/13/22 11:35 Blood Cultures: No Data to Display Toxicology Panel: No Data to Display Imaging and Studies Imaging and Studies Study information below may be from another EMR and interpreted by another provider. Please see original notes in EMR for more complete details. EKG Summary: Conclusion Sinus rhythm...normal P axis, V-rate 60- 99. 01/18/22 Pulmonary Function Summary: Impression Severe airflow limitation with air trapping and a reduced diffusion. In the correct clinical context this could represent COPD with emphysema. Clinical Correlation therefore is recommended. 10/03/21 Anesthesia Assessment and Plan Anesthesia History Personal History: No History of Anesthesia Complications Family History: No Family History of Anesthesia Complications Exercise Tolerance Exercise Tolerance: Metabolic Equivalents<4 Pertinent Negatives Pertinent Negatives: No Symptoms of GERD, No Major Cardiovascular Symptoms or Complaints and No History of CVA/TIA Cardiac & Pulmonary Exam Cardiac Exam: Normal S1/S2 Heart Sounds Pulmonary Exam: Clear Bilateral Breath Sounds Implantable Cardiac Device Does patient have a Pacemaker or an ICD?: No Airway Exam Known Difficult Airway: No Mallampati Class: 2 Mouth Opening: Normal (> 3cm) Thyromental Distance: Greater than 3 cm Neck Range of Motion: Full ROM Neck Circumference: Normal Teeth Condition: Generalized Poor Dentition (None loose oer patient) ASA Classification ASA Score: ASA 3 Emergency Case?: No NPO Status NPO Status: NPO Clears >2 hours, Solids >8 hours Anesthesia Plan Resuscitation Status: Full Code Anesthesia Technique: General Anesthesia Airway Planned: Endotracheal Tube Monitors Used: Standard Monitors
[2022-05-15] MEDS: Lidocaine 1% Pres-Free 30 ML VIAL (08:00)
--- NOTE | 2022-05-15 08:17 | PAPNONF_PTH ---
PATIENT: Raffy Lira LOC: [facility] U#:[id number] AGE/SX: 62/M ROOM: RE05/15/[address]: Char Escobar MD : 1960 BED: DIS: 05/15/2022 SPEC #: [id number] RECD: 05/15/22 13:13 STATUS: JOE RE #: [id number] SAVANNAH: 05/15/22 08:[address]: Char Escobar DEPT: [facility] Cytology RECD BY: Marisela Coker ENTERED: 05/15/22 13:14 SP TYPE: PAPSOURAVF DEXTER DR: Darek Dai Tissues: 1 - BODY FLUID CYTO(NOT S/U/N/EM)[facility] 2 - BODY FLUID CYTO(SPUTUM/URINE)[facility] Procedures: BODY FLUID CYTO(NOT SPU/UR/NIP/ENDOM)[facility] BODY FLUID CYTO(URINE/SPUTUM) Comments: [id number]
--- NOTE | 2022-05-15 08:53 | W.PM.OP ---
Date of service: 05/15/22 Time of Service: 07:30 Operative Note Operative Note PRE-OP DIAGNOSIS: Cavitary Lung Lesions PROCEDURE: Flexible Bronchoscopy with BAL, bronchial washings and Endobronchial brushings Refer to Anesthesia Record Procedure Description: Bronchoscopy Indication:Cavitary Lung Lesions Procedure performed: Flexible bronchoscopy with BAL, bronchial washings and endobronchial brushings Sedation plan: General Anesthesia Medications used: see seperate anesthesia record Informed consent was obtained after the risks and benefits or the procedure were discussed. Anesthesia intubated the patient. A proper and complete OR compliant time out was performed. The therapeutic 6.2mm Olympus bronchoscope was inserted through the endotracheal tube. The bronchoscope was inserted into the airways, were 2cc in total of 1% topical lidocaine was used the anesthetize the airways. The trachea was midline and without lesion or injury. The mucosa appeared normal and there were no signs of tracheomalacia. The minnie was sharp. All bronchial subsegments were visualized within each lobe and showed normal appearing airways with minimal white secretions in the trachea and mainstem bronchi. The RUL had copious white, thick secretions that were easily suctioned. The remainder of the airway exam was normal. 2 endobronchial brushes (10 passes each) were obtained in the right mainstem to send for Percepta analysis. A bronchoalveolar lavage was performed in the RUL. A total of 120cc of saline was administered with a return of 30cc. The fluid was slightly cloudy in appearance with visible mucus/debris. The bronchoscope was then removed and the case terminated. The patient was taken to PACU in stable condition. Samples collected:RUL BAL, bronchial washings, right mainstem endobronchial brushes x2. Testing ordered: Cell differential, bacterial, fungal & AFB cultures, cytolopathology, Percepta genetic sequencing Complications:None Char Escobar MD Pulmonary & Critical Care Medicine
--- NOTE | 2022-05-15 10:04 | NUR.NOTE ---
Severely decreased LS on left, inspiratory and expiratory wheezing on right with inspiratory rales RUL. O2 sats 87 to 90 % on room air. RR 24. Color normal. In good spirits. Duo-neb given with effect pending.Nursing Note:
[2022-05-15] MEDS: Albuterol/Ipratropium 3 ML UPD VIAL UPD (10:05)
--- NOTE | 2022-05-15 10:27 | W.ANESPOSTOP ---
Postoperative Evaluation Date, Time and Location Date Performed: 05/15/22 Time Performed: 10:28 Patient Location: Day Surgery Unit Vital Signs Most Recent Imported Vital Signs: Most Recent Vital Signs Temp Pulse Resp BP Pulse Ox 37.0 C 94 H 19 142/90 H 90 05/15/22 09:54 05/15/22 09:54 05/15/22 09:54 05/15/22 09:54 05/15/22 09:54 Pain Score Most Recent Pain Score: Most Recent Pain Score Pain Level 0 05/15/22 09:54 Assessment Mental Status: Awake (Alert & Oriented to Patient Baseline) Airway and Respiratory Function: Patent airway with normal (patient baseline) respiratory exam Cardiovascular Function: Hemodynamically Stable Hydration Status: Adequately Hydrated Nausea & Vomiting: No Nausea or Vomiting Pain: Pt. Denies Any Pain Peripheral Nerve Block: Patient did not receive a nerve block Postoperative Comments:: Pt. feels like his breathing is back to baseline. He does have a productive cough. Will discuss with Dr. Escobar any adjuncts for home.
--- NOTE | 2022-05-15 10:43 | NUR.NOTE ---
Dr. Ventura updated. Jaime suggested and obtained by RT. Given to patient with instructions by RT. Good return demonstration. Nursing Note:
[2022-05-18 15:39] LABS: Lymphocytes Fluid Relative 13 %; Mono/Macrophage Fluid Relative 13 %; Neutrophils Fluid Relative 73 %
[2022-05-18 15:42] LABS: Eosinophils Fluid Relative 1 %
[2022-05-20 12:14] LABS: Gram Smear Result Neutrophils Present
[2022-06-15 09:30] LABS: Fungus Smear No Fungi Seen
[2022-06-17 11:25] LABS: Fungus Smear No Fungi Seen
== END 2022-05-15 11:28 | disposition home or self-care (01) ==
LOC: SUR 06:23
PROVIDERS: PCP Physician Assistant Medical; Visit Provider Student in an Organized Health Care Education/Training Program
PROC: 0BJ08ZZ Inspection of Tracheobronchial Tree, Via Natural or Artificial Opening Endoscopic (ICD-10-PCS; CPT 31622; principal; 2022-05-15 07:30)
DX: J98.4 Other disorders of lung (principal); F17.210 Nicotine dependence, cigarettes, uncomplicated; Z79.899 Other long term (current) drug therapy
CPT/HCPCS: 31624; 31623; 80162; 87070; 87102; 87107; 87116; 87205; 87206; 88104; J0360; J1100; J2250; J2405; J7620